=== PATIENT | female | born 1955 | race Hispanic/Latino ===

== ENCOUNTER 2023-01-16 12:09 | Emergency (ER) | payer MEDICARE ==
[~2023-01-16] VITALS: Ht 154.9 cm; Wt 65.8 kg
[2023-01-16] MEDS ORDERED: LACTATED RINGERS 1000ML 1,000 ML IV ONE (12:30)
[2023-01-16 12:46] LABS: BASOPHILS # (AUTO) 0.02 K/uL (0.00-0.20); BASOPHILS % (AUTO) 0.1 % (0.0-5.0); EOSINOPHILS # (AUTO) 0.01 K/uL (0.00-0.70); EOSINOPHILS % (AUTO) 0.1 % (0.0-8.0); HEMATOCRIT 27.7 % (36-48); LYMPHOCYTES % (AUTO) 6.8 % (21.0-51.0); MEAN CORPUSCULAR HGB CONC 32.9 g/dL (32.0-36.0); MEAN CORPUSCULAR VOLUME 88.2 fL (79-99); MONOCYTES % (AUTO) 6.7 % (3.0-13.0); NEUTROPHILS # (AUTO) 12.3 K/uL (1.8-7.7); NEUTROPHILS % (AUTO) 85.6 % (40.0-77.0); PLATELET COUNT (AUTO) 194 K/uL (130-400); RED BLOOD CELL COUNT(AUTO) 3.14 MIL/uL (4.00-5.50); RED CELL DISTRIBUTION WIDTH 15.4 % (11.0-15.5); WHITE BLOOD COUNT (AUTO) 14.4 K/uL (4.8-10.8)
[2023-01-16 12:54] LABS: CREATININE 1.4 mg/dL (0.5-1.5)
[2023-01-16 12:59] LABS: ALBUMIN 2.2 g/dL (3.5-5.0); BILIRUBIN,TOTAL 1.1 mg/dL (0.2-1.0); INR 1.09 (0.85-1.15); PROTHROMBIN TIME 12.6 SEC (9.6-11.6); TOTAL PROTEIN, SERUM 7.4 g/dL (6.0-8.3)
[2023-01-16 13:36] LABS: B-TYPE NATRIURETIC PEPTIDE 117 pg/mL (0-100)
[2023-01-16 15:27] VITALS: BP 133/77; PULSE 80; RESP 17; O2SAT 99
[2023-01-16 15:59] LABS: APPEARANCE,URINE CLOUDY (CLEAR); BILIRUBIN,URINE NEGATIVE (NEGATIVE); COLOR,URINE YELLOW (YELLOW); GLUCOSE, URINE (UA) NEGATIVE (NEGATIVE); KETONES,URINE 20 mg/dL (NEGATIVE); LEUKOCYTE ESTERASE ,URINE 500 Leu/uL (NEGATIVE); NITRATE,URINE NEGATIVE (NEGATIVE); PH,URINE 5.5 (5.0-8.0); PROTEIN,URINE 20 mg/dL (NEGATIVE); UROBILINOGEN,URINE 6 mg/dL (0.2-1.0)
[2023-01-16 16:03] LABS: BACTERIA,URINE MOD /HPF (None Seen); MUCUS,URINE RARE LPF (None Seen); OTHER CASTS, URINE 1 /LPF (None Seen); SQUAMOUS EPITHELIAL CELL,UR FEW /HPF (0-2); UNCLASSIFIED CRYSTAL 1 /HPF (None Seen); WBC,URINE 26-50 /HPF (0-1)
[2023-01-16] MEDS ORDERED: CEFTRIAXONE 2GM VIAL IVPB STA (16:10)
[2023-01-16] MEDS ORDERED: CEPH500B PO (16:16)
== END 2023-01-16 17:05 | disposition home or self-care (01) ==
LOC: EDH 12:09
DX: N39.0 Urinary tract infection, site not specified (principal); R10.2 Pelvic and perineal pain; E11.9 Type 2 diabetes mellitus without complications; I10 Essential (primary) hypertension
CPT/HCPCS: 99284; 96365; 71045; 96361; 82550; 84484; 80053; 83880; 85025; 85610; 87077; 87088; 87186; 81001 ×2; 36415; J7120; J0696